=== PATIENT | male | born 1985 | race Caucasian/White ===

== ENCOUNTER 2017-04-14 13:51 | Emergency (ER) | payer SELFPAY ==
[2017-04-14] MEDS: CYCLOBENZAPRINE HCL 10 MG TAB PO (15:30)
[2017-04-14] MEDS: NAPROXEN 500 MG TAB PO (15:30)
== END 2017-04-14 15:50 | disposition home or self-care (01) ==
LOC: NEPK 13:51
DX: S39.012A Strain of muscle, fascia and tendon of lower back, initial encounter (principal); F17.210 Nicotine dependence, cigarettes, uncomplicated; X50.0XXA Overexertion from strenuous movement or load, initial encounter; Y93.89 Activity, other specified
CPT/HCPCS: 99283